=== PATIENT | male | born 1955 | race Caucasian/White ===

== ENCOUNTER 2021-04-07 17:20 | Emergency (ER) | payer BC ==
[2021-04-07 17:49] LABS: HEMOGLOBIN 11.5 gm/dl (14.0-17.5); RED BLOOD COUNT 3.69 M/UL (4.20-5.50); WHITE BLOOD COUNT 7.8 K/UL (4.5-11.0)
== END 2021-04-07 21:30 | disposition home or self-care (01) ==
LOC: ER1 17:20
PROVIDERS: Emergency Medicine
DX: I95.3 Hypotension of hemodialysis (principal); I10 Essential (primary) hypertension; E86.0 Dehydration; Z20.822 Contact with and (suspected) exposure to COVID-19
CPT/HCPCS: 0240U; 71045; 80053; 81001; 83605; 83690; 83735; 83880; 84100; 84439; 84443; 85025; 85610; 85730; 86850; 86900; 86901; 87040; 93005; 99284